=== PATIENT | male | born 1985 | race Caucasian/White ===

== ENCOUNTER 2021-08-18 19:32 | Emergency (ER) | payer OTHER ==
[~2021-08-18] VITALS: Ht 167.6 cm; Wt 120.3 kg
[2021-08-18] MEDS ORDERED: IBUPROFEN 600 MG TAB PO STA (19:52)
[2021-08-18] MEDS ORDERED: NAPROSYN500 MG PO (20:42)
[2021-08-18] MEDS ORDERED: CLEOCIN HCL300 MG PO (20:42)
[2021-08-18] MEDS ORDERED: AUGMENTIN 500-1 EACH PO (20:42)
[2021-08-18] MEDS ORDERED: CEFTRIAXONE 1 GM VIAL IM ONE (20:45)
== END 2021-08-18 21:00 | disposition home or self-care (01) ==
LOC: FSED 19:53
DX: S00.83XA Contusion of other part of head, initial encounter (principal); Y04.0XXA Assault by unarmed brawl or fight, initial encounter; K04.7 Periapical abscess without sinus; K21.9 Gastro-esophageal reflux disease without esophagitis
CPT/HCPCS: 70450; 70486; 99283; J0696